=== PATIENT | female | born 1965 | race Caucasian/White ===

== ENCOUNTER 2018-09-14 06:12 | Emergency (ER) | payer MEDICAID ==
[~2018-09-14] VITALS: Ht 172.7 cm; Wt 59.0 kg
[2018-09-14 06:15] VITALS: BP_SYST 92
--- NOTE | 2018-09-14 06:15 | NUR ---
Patient to ER bed for evaluation. Side rails up. Report given to [facility].
--- NOTE | 2018-09-14 06:25 | NUR ---
Medication reconciliation completed with information provided by patient. Any prior medication reconciliation on file was reviewed and corrected.
--- NOTE | 2018-09-14 06:25 | NUR ---
Pt awaek alert oriented x 4. Clear speech. Pt complain of nausea, vomiting and diarrhea since 0400. at bedside. Per pt had lobster and prime rib for dinner. Vital signs obtained. Afibrile. will continue to monitor
[2018-09-14] MEDS ORDERED: PRO10 PO (06:29)
[2018-09-14] MEDS ORDERED: ASPI-1153 PO (06:29)
[2018-09-14] MEDS ORDERED: LIP10 PO (06:29)
[2018-09-14] MEDS ORDERED: ONDANSETRON 4 MG ODT TAB PO ONE (06:30)
--- NOTE | 2018-09-14 06:45 | NUR ---
ER at bedside examining patient.
[2018-09-14] MEDS ORDERED: NACL 0.9% 1,000 ML IV ONE (06:47)
[2018-09-14] MEDS ORDERED: ONDANSETRON HCL 4 MG/2 ML VIAL IVP ONE (07:00)
[2018-09-14] MEDS ORDERED: KETOROLAC TROMETHAMINE 30 MG VIAL IVP ONE (07:00)
--- NOTE | 2018-09-14 07:00 | NUR ---
Report given to Erica ANDERSON to continue care.
--- NOTE | 2018-09-14 08:00 | NUR ---
Patient given written and verbal discharge instructions and verbalizes understanding. ER MD discussed with patient the results and treatment provided. Patient in stable condition. ID arm band removed. IV catheter removed intact and dressing applied, no active bleeding. Rx of Motrin, imodium, zofrano given. Patient educated on pain management and to follow up with PMD. Pain Scale 0/10. Opportunity for questions provided and answered. Medication side effect fact sheet provided.
[2018-09-14 08:22] VITALS: BP_SYST 96
== END 2018-09-14 08:00 | disposition home or self-care (01) ==
LOC: SED 06:12
DX: R11.2 Nausea with vomiting, unspecified (principal); R19.7 Diarrhea, unspecified; Z87.891 Personal history of nicotine dependence; Z79.82 Long term (current) use of aspirin; Z79.899 Other long term (current) drug therapy; Z88.8 Allergy status to other drugs, medicaments and biological substances
CPT/HCPCS: 96361; 96374; 96375; 99283; J1885; J2405; J7030; Q0162